=== PATIENT | male | born 1945 | race Caucasian/White ===

== ENCOUNTER 2016-07-20 19:37 | Emergency (ER) | payer OTHER ==
--- NOTE | 2016-07-20 20:00 | EDPHY ---
H & P Time Seen by Provider: 07/20/16 19:42 HPI/ROS: Chief complaint. Fell and hit head HPI. 71-year-old [place] trip and fall at 4: 00 p.m.. He hit his head and injured his right shoulder is he fell on outstretched right arm. No loss of consciousness. He walked back to the trail head. No neck pain. He is not on blood thinners. Been no confusion. Pain to the right shoulder with movement. Otherwise no chest pain, shortness of breath abdominal pain back pain or injury to hips or legs. He also complains of dizziness and has not eaten all day and not much water. ROS Constitutional. no fever/chills, no weakness Eyes. no problems with vision ENT. no sore throat, no nasal drainage Cardiovascular. no chest pain Respiratory. no shortness of breath, no cough Abdominal. no abdominal pain, no nausea/vomiting, no diarrhea . no problems urinating MS. No neck pain. Pain to right humerus Skin. Abrasion right eyebrow Lymph. no swollen glands Neuro. no headache, no dizziness, no difficulty walking or with speech Past Medical/Surgical History: Hypertension Social History: Single, nonsmoker, no alcohol Physical Exam: General Appearance: Alert well-developed male mild distress vital signs significant for an heart rate 110 Eyes: Pupils equal and round no pallor or injection. ENT, no hemotympanum or Tubbs sign. No oral pharyngeal or dental trauma. Abrasion hematoma to right eyebrow. Respiratory: There are no retractions, lungs are clear to auscultation. Cardiovascular: Regular rate and rhythm. Gastrointestinal: Abdomen is soft and nontender, no masses, bowel sounds normal. Neurological: Awake and alert, sensory and motor exams grossly normal. Skin: Warm and dry, no rashes. Musculoskeletal: Neck is supple nontender. Extremities pain to palpation and range of motion right shoulder and upper humerus. No obvious deformity Psychiatric: Patient is oriented X 3, there is no agitation. Constitutional: Initial Vital Signs Temperature (C) 36.4 C 07/20/16 19:50 Heart Rate 110 H 07/20/16 19:50 Respiratory Rate 18 07/20/16 19:50 Blood Pressure 125/95 H 07/20/16 19:50 O2 Sat (%) 93 07/20/16 19:50 O2 Delivery Mode Room Air Allergies/Adverse Reactions: aspirin [Aspirin] Allergy (Unknown, Verified 03/14/09 19:55) Home Medications: Medication Instructions Recorded Calcium 1,000 + D3 Caplet 07/20/16 Cipro 07/20/16 Fish Oil 07/20/16 Fluticasone Nasal 07/20/16 Lisinopril 07/20/16 Tamsulosin HCl 07/20/16 VITAMIN B COMPLEX 07/20/16 oxyCODONE/APAP 5/325 [Percocet 1 tab PO Q4-6PRN PRN #14 tab 07/20/16 5/325] Medical Decision Making - Diagnostics Imaging Results: Imaging Impressions Shoulder X-Ray 07/20/16 20:21 Impression: 1. Acute displaced greater tuberosity fracture. 2. Equivocal incomplete right surgical neck fracture. X-ray right shoulder reveals, proximal humeral head comminuted fracture of the greater tuberosity. No significant dislocation Procedures: IV normal saline, fentanyl for pain. Zofran for nausea ED Course/Re-evaluation: Patient is placed in a coaptation splint and sling right arm. Patient post splint application reviewed by me and shows good anatomic position and distal motor vascular sensitivity to be intact Patient complains of pain with putting on the splint. He is given an additional 100 mcg of fentanyl IV Patient and I discussed imaging study results, treatment plan including criteria for return importance of follow-up further evaluation. He expresses understanding and agreement Re-evaluation again 9:45 p.m. patient is stable and now in splint and sling Differential Diagnosis: I considered possibility of concussion, skull fracture, intracranial injury. He did not lose consciousness. He is alert oriented social and interactive without evidence or signs of a concussion. He is not on blood thinners. He also does not have neck pain. The patient has a proximal humerus fracture on x- ray and I considered fracture dislocation, contusion as well - Data Points Medications Given: Discontinued Medications Fentanyl (Sublimaze) 50 mcg IVP EDNOW ONE Stop: 07/20/16 20:22 Last Admin: 07/20/16 20:40 Dose: 50 mcg Sodium Chloride (Ns) 1,000 mls @ 0 mls/hr IV ONCE ONE PRN Reason: Wide Open Stop: 07/20/16 20:22 Last Admin: 07/20/16 20:40 Dose: 1,000 mls Sodium Chloride (Ns) 1,000 mls @ 0 mls/hr IV ONCE ONE PRN Reason: Wide Open Stop: 07/20/16 20:22 Last Admin: 07/20/16 20:40 Dose: 1,000 mls Ondansetron HCl (Zofran) 4 mg IVP EDNOW ONE Stop: 07/20/16 20:22 Last Admin: 07/20/16 20:40 Dose: 4 mg Departure - Departure Disposition: Home, Routine, Self-Care Clinical Impression: Comminuted right humeral fracture Qualifiers: Encounter type: initial encounter Fracture type: closed Qualified Code(s): S42.351A - Displaced comminuted fracture of shaft of humerus, right arm, initial encounter for closed fracture Condition: Good Instructions: Proximal Humerus Fracture (ED) Additional Instructions: Splint and sling until see orthopedist. Call Dr. Camp's office in the morning for further evaluation and treatment. Ice to shoulder next 24-48 hours. Percocet as needed for pain. Return for worsening symptoms. Referrals: Cynthia Mansfield MD [Primary Care Provider] - As per Instructions Danyel Camp MD [Medical Doctor] - 2-3 days, call for appt. Prescriptions: oxyCODONE/APAP 5/325 [Percocet 5/325] 1 tab PO Q4-6PRN PRN #14 tab PRN Reason: Pain, Moderate
[2016-07-20 20:01] VITALS: TEMP 97.5
[2016-07-20] MEDS ORDERED: NS 1,000 ML IV ONE ×2 (20:21)
[2016-07-20] MEDS ORDERED: fentaNYL 100 MCG/2 ML INJ IVP ONE ×2 (20:21→21:14)
[2016-07-20] MEDS ORDERED: ONDANSETRON 4 MG/2 ML VIAL IVP ONE ×2 (20:21→22:00)
[2016-07-20] MEDS ORDERED: OXYCODONE/APAP 5/325MG PREPACK#4 BTL TAKEHOME ONE (20:49)
[2016-07-20 21:49] VITALS: RESP 20
[2016-07-20] MEDS ORDERED: ONDANSETRON 4MG PREPACK#2 BTL TAKEHOME ONE ×2 (21:55→22:03)
[2016-07-20] MEDS ORDERED: ONDANSETRON 4 MG/2 ML VIAL ONE (21:55)
[2016-07-20 23:20] VITALS: BP 144/91; PULSE 72; O2SAT 97
== END 2016-07-20 23:00 | disposition home or self-care (01) ==
DX: S42.251A Displaced fracture of greater tuberosity of right humerus, initial encounter for closed fracture (principal); I10 Essential (primary) hypertension; W01.0XXA Fall on same level from slipping, tripping and stumbling without subsequent striking against object, initial encounter
CPT/HCPCS: 73030; 96361; 96374; 96375; 96376; 99284; A4565; J2405; J3010